=== PATIENT | female | born 1950 | race Caucasian/White ===

== ENCOUNTER → 2017-09-22 | Outpatient (CLI) | payer MEDICARE, BC ==
[~2017-09-22] MED LIST: ASPI-621 PO; AZEL23SP NAS; CETI-158 PO; FLUT16SP2 NS; GABA100C PO; GABA600T2 PO; HIGH BLOOD PRESSURE; HYDR12.53 PO; LACT1CAP20 PO; LACT1CAP24 PO; LEVO25TA4 PO; LEVO750T26 PO; LISI5TAB7 PO; METF100010 PO; METF500T27 PO; NAPR1TAB21 PO; PRAS25CA6 PO; SIMV5TAB5 PO; SIMV80TA3 PO
[2017-09-22 12:21] LABS: BASOPHILS # (AUTO) 0.09 x10^3/uL (0-0.1); BASOPHILS % (AUTO) 1 % (0-1); EOSINOPHILS # (AUTO) 0.27 x10^3/uL (0-0.4); EOSINOPHILS % (AUTO) 3 % (1-7); LYMPHOCYTES # (AUTO) 2.83 x10^3/uL (1-3.4); LYMPHOCYTES % (AUTO) 28 % (22-44); MD NO; MEAN CORPUSCULAR HGB CONC 33.5 g/dL (32.4-35.8); MEAN CORPUSCULAR VOLUME 92.5 fL (80-100); MEAN PLATELET VOLUME 7.2 fL (7.4-10.4); MONOCYTES % (AUTO) 9 % (2-9); NEUTROPHILS # (AUTO) 6.12 x10^3/uL (1.8-6.8); NEUTROPHILS % (AUTO) 60 % (42-75); PLATELET COUNT 411 x10^3/uL (130-400); RED BLOOD COUNT 4.48 x10^6/uL (3.82-5.3); RED CELL DISTRIBUTION WIDTH 13.9 % (9.6-15.2)
[2017-09-22 12:31] LABS: ALBUMIN 3.8 g/dL (3.4-5.0); ANION GAP 8 mmol/L (5-15); CALCIUM 9.4 mg/dL (8.5-10.1); CHLORIDE 103 mmol/L (98-107); CREATININE 0.66 mg/dL (0.55-1.02)
[2017-09-22 12:38] LABS: ALANINE AMINOTRANSFERASE 21 U/L (12-78); ALKALINE PHOSPHATASE 61 U/L (45-117); BILIRUBIN,TOTAL 0.9 mg/dL (0.2-1.0); TOTAL PROTEIN 6.6 g/dL (6.4-8.2)
[2017-09-22 12:48] LABS: CULTURE INDICATED? YES; MICROSCOPIC INDICATED
== END | disposition home or self-care (01) ==
LOC: STAR 11:09
PROVIDERS: ATTEND Orthopaedic Surgery
DX: Z01.818 Encounter for other preprocedural examination (principal); T84.84XS Pain due to internal orthopedic prosthetic devices, implants and grafts, sequela; Z96.652 Presence of left artificial knee joint
CPT/HCPCS: 36415; 80053; 81001; 85025; 87077; 87081; 87086; 87806; 93005; G0475